=== PATIENT | female | born 2000 | race Two or more races ===

== ENCOUNTER 2023-01-21 23:36 | Inpatient (IN) ==
[2023-01-22 00:12] LABS: BILIRUBIN,URINE NEGATIVE (NEGATIVE); BLOOD/HEMOGLOBIN,URINE NEGATIVE (NEGATIVE); GLUCOSE, URINE NEGATIVE (NEGATIVE); KETONES,URINE NEGATIVE (NEGATIVE); LEUKOCYTE ESTERASE ,URINE NEGATIVE (NEGATIVE); NITRITES,URINE NEGATIVE (NEGATIVE); PROTEIN,URINE NEGATIVE (NEGATIVE); UROBILINOGEN,URINE NORMAL (NORMAL)
[2023-01-22 00:18] LABS: APPEARANCE,URINE CLEAR (CLEAR); COLOR,URINE PALE YELLOW (YELLOW)
[2023-01-22 00:35] LABS: AMNISURE ROM TEST THERE IS A RUPTURE (NO RUPTURE)
[2023-01-22] MEDS ORDERED: ZOFRAN INJ 4 MG VIAL IVP PRN (01:12)
[2023-01-22] MEDS ORDERED: NUBAIN INJ 20 MG AMP IVP PRN (01:12)
[2023-01-22] MEDS ORDERED: D5 LR + PITOCIN 10 UNITS/L 10 UNITS/1,000 ML BAG IV PRN (01:12)
[2023-01-22] MEDS ORDERED: MORPHINE SULFATE INJ 4 MG IVP PRN (01:12)
[2023-01-22] MEDS ORDERED: PITOCIN IVP ONE (01:12)
[2023-01-22 01:13] LABS: BASOPHILS % (AUTO) 0.3 % (0.2-1.0); EOSINOPHILS # (AUTO) 0.2 x10^3/uL (0.0-0.2); EOSINOPHILS % (AUTO) 2.1 % (0.9-2.9); HEMATOCRIT 33.6 % (36.0-47.0); HEMOGLOBIN 11.3 g/dL (12.0-16.0); LYMPHOCYTES # (AUTO) 1.6 X10^3/uL (1.3-2.9); LYMPHOCYTES % (AUTO) 19.7 % (21.0-51.0); MEAN CORPUSCULAR HEMOGLOBIN 29.9 pg (27.0-34.0); MEAN CORPUSCULAR HGB CONC 33.8 g/dL (33.0-35.0); MEAN CORPUSCULAR VOLUME 88.4 fL (80.0-100.0); MEAN PLATELET VOLUME 8.1 fL (7.4-11.0); MONOCYTES # (AUTO) 0.5 x10^3/uL (0.3-0.8); MONOCYTES % (AUTO) 6.4 % (0.0-13.0); NEUTROPHILS # (AUTO) 5.9 x10^3/uL (2.2-4.8); NEUTROPHILS % (AUTO) 71.5 % (42.0-75.0); PLATELET COUNT 177 X10^3/uL (150.0-450.0); WHITE BLOOD COUNT 8.2 X10^3/uL (3.6-10.0)
[2023-01-22 01:21] LABS: ALANINE AMINOTRANSFERASE 13 Units/L (12-78); ALBUMIN 2.7 g/dL (3.4-5.0); ALKALINE PHOSPHATASE 254 Units/L (46-116); ASPARTATE AMINO TRANSFERASE 16 Units/L (15-37); BLOOD UREA NITROGEN 11 mg/dL (7-18); CARBON DIOXIDE 19.9 mmol/L (21-32); CHLORIDE 103 mmol/L (98-107); CREATININE 0.44 mg/dL (0.55-1.02); GLUCOSE 80 mg/dL (65-99); POTASSIUM 3.5 mmol/L (3.5-5.1); SODIUM 134 mmol/L (136-145); TOTAL PROTEIN 6.7 g/dL (6.4-8.2); eGFR NON BLACK RACES > 60 (>60)
[2023-01-22] MEDS ORDERED: BETADINE SOLN ONE (02:00)
[2023-01-22] MEDS ORDERED: D5 1/2 NS 1,000 ML 1,000 ML IV ONE (02:00)
[2023-01-22] MEDS ORDERED: D5 1/2 NS 1,000 ML 1,000 ML IV SCH (02:00)
[2023-01-22] MEDS ORDERED: AMPICILLIN VIAL 2 GRAM 2 G in NS 100 ML IV + SPIKE MINIBAG* 100 ML IV SCH (02:00)
[2023-01-22] MEDS ORDERED: PITOCIN ONE (02:00)
[2023-01-22] MEDS ORDERED: D5 LR + PITOCIN 10 UNITS/L 10 UNITS/1,000 ML BAG IV ONE (02:01)
[2023-01-22] MEDS ORDERED: D5 1/2 NS 1,000 mL + PITOCIN 20 UNITS/L IV 20 UNITS/1,000 ML BAG IV ONE (02:01)
[2023-01-22] MEDS ORDERED: AMPICILLIN VIAL 2 GRAM ONE (02:02)
[2023-01-22] MEDS ORDERED: NS 100 ML IV 100 ML ONE ×2 (02:02→05:30)
[2023-01-22] MEDS ORDERED: FLUARIX QUAD VACC (FOR AGE 6 MONTHS+) IM ONE (02:36)
[2023-01-22] MEDS ORDERED: MORPHINE SULFATE INJ 2 MG INJ ONE (03:28)
[2023-01-22] MEDS ORDERED: AMPICILLIN VIAL 1 GRAM ONE (05:30)
[2023-01-22] MEDS ORDERED: XYLOCAINE 1 % (PLAIN) ONE (05:58)
[2023-01-22] MEDS ORDERED: AMPICILLIN VIAL 1 GRAM 1 G in NS 50 ML IV + SPIKE MINIBAG* 50 ML IV SCH (06:00)
[2023-01-22] MEDS ORDERED: MOTRIN TAB 800 MG PO PRN (06:14)
[2023-01-22] MEDS ORDERED: D5 1/2 NS 1,000 ML 1,000 ML with PITOCIN 20 UNITS IV SCH ×2 (07:00)
[2023-01-22] MEDS ORDERED: AMBIEN PO PRN (07:26)
[2023-01-22] MEDS ORDERED: MILK OF MAGNESIA PO PRN (07:26)
[2023-01-22] MEDS ORDERED: DERMOPLAST PAIN RELIEF SPRAY TOP PRN (07:26)
[2023-01-22] MEDS ORDERED: AMPICILLIN VIAL 1 GRAM 1 G in NS 50 ML IV 50 ML IV SCH (08:00)
[2023-01-22] MEDS ORDERED: PRENATAL PLUS PO SCH (09:00)
[2023-01-23 00:02] VITALS: O2SAT 98
[2023-01-23 05:09] LABS: HEMOGLOBIN 9.7 g/dL (12.0-16.0)
[2023-01-23 10:42] VITALS: BP 98/50; PULSE 73; RESP 18; TEMP 97.6
== END 2023-01-23 13:50 | disposition home or self-care (01) | DRG 807 ==
LOC: ER 23:41 → LD 01-22 01:12 → MED/SURG 01-22 07:43
PROVIDERS: ADMIT Obstetrics & Gynecology Obstetrics; ATTEND Obstetrics & Gynecology Obstetrics
DX: Z3A.39 39 weeks gestation of pregnancy; O70.1 Second degree perineal laceration during delivery; Z37.0 Single live birth; O26.893 Other specified pregnancy related conditions, third trimester